=== PATIENT | female | born 2005 | race Caucasian/White ===

== ENCOUNTER 2024-02-16 21:20 | Observation (INO) ==
[2024-02-16 22:22] LABS: ABS Lymphocytes 0.7 10^3/uL (1.0-4.8); ABS Monocytes 0.5 10^3/uL (0.0-0.9); ABS Neutrophils 12.5 10^3/uL (1.5-7.6); ABS Nucleated RBC 0.01 10^3/ul; Eosinophil % 0.1 %; Hematocrit 37.9 % (35-45); Hemoglobin 12.5 g/dL (11.5-14.3); Mean Corpuscular Hemoglobin 29.8 pg (27-33); Mean Corpuscular Hgb Conc 32.9 g/dL (31-36); Mean Corpuscular Volume 90.4 fL (80-97); Mean Platelet Volume 9.1 fL (7.5-11.2); Nucleated Red Blood Cells % 0.1 %/100WBC (0.0-0.8); Platelet Count 328 10^3/uL (150-450); Red Cell Distribution Width 13.2 % (12-17); White Blood Count 13.7 10^3/uL (3.8-11.8)
[2024-02-16 22:55] LABS: ALT 10 U/L (7-52); AST 17 U/L (13-39); Albumin 4.6 g/dL (3.2-5.2); Albumin/Globulin Ratio 1.6 (1-3); Alkaline Phosphatase 73 U/L (35-149); Anion Gap 12 mmol/L (2-16); Blood Urea Nitrogen 9 mg/dL (6-24); C Reactive Protein 1.51 mg/L (<8.01); CO2 Carbon Dioxide 24 mmol/L (22-32); Calcium 9.3 mg/dL (8.6-10.3); Chloride 101 mmol/L (101-111); Creatinine, Serum 0.69 mg/dL (0.51-0.95); Globulin 2.8 g/dL (2-4); Glucose 110 mg/dL (70-100); Potassium 4.1 mmol/L (3.5-5.0); Sodium 137 mmol/L (135-145); Total Bilirubin 0.4 mg/dL (0.2-1.0); Total Protein 7.4 g/dL (6.4-8.9); eGFR CKD-EPI 127.3 (>60)
[2024-02-16 23:02] LABS: HCG Pregnancy < 0.60 mIU/mL
[2024-02-17] MEDS: Ondansetron 4 mg VIAL 2 MG/ML 2 ml VIAL IV ONE (01:18)
[2024-02-17] MEDS: Lactated Ringers 1000 ml BAG 1,000 ML IV ONE ×2 (01:19→03:57)
[2024-02-17] MEDS: Morphine 4 MG/ML VIAL (1 ml) IV ONE (02:03)
[2024-02-17] MEDS: Metoclopramide 5 MG/ML VIAL (10 mg) IV ONE (03:57)
[2024-02-17] MEDS: HYDROmorphone 0.5 MG/0.5 ML SYRINGE IV ONE (03:57)
[2024-02-17] MEDS: cefTRIAXone 1 gm/50 mL D5W 1 GM/50 ML BAG IV SCH (05:55)
[2024-02-17] MEDS: Lactated Ringers 1000 ml BAG 1,000 ML IV SCH (06:23)
[2024-02-17] MEDS ORDERED: ACETAMINOPHEN IV PRN ×2 (06:40→07:31)
[2024-02-17 09:05] LABS: Urine Appearance Clear; Urine Bilirubin Negative (Negative); Urine Blood 2+ (Negative); Urine Color Light-Yellow; Urine Glucose Negative (Negative); Urine Ketones 4+ (Negative); Urine Nitrite Negative (Negative); Urine Protein 1+ (>=30 mg/dL) (Negative); Urine Specific Gravity 1.023 (1.002-1.030); Urine Urobilinogen Negative (Negative); Urine pH 6.5 (5.0-8.0)
[2024-02-17 09:08] LABS: Urine Bacteria Absent /HPF (Absent); Urine Red Blood Cell 3+(>10/hpf) /HPF (0-Trace); Urine Squamous Epithelial Cell Present /HPF (Absent); Urine White Blood Cell Trace(0-5/hpf) /HPF (0-Trace)
[2024-02-17] MEDS: HYDROmorphone 0.5 MG/0.5 ML SYRINGE IV SLOW PU PRN (10:58)
[2024-02-17] MEDS ORDERED: Morphine 2 MG/ML SYRINGE IV PRN (11:32)
[2024-02-17] MEDS: Ondansetron 4 mg VIAL 2 MG/ML 2 ml VIAL IV PRN (20:41)
[2024-02-17] MEDS ORDERED: Acetaminophen IV 1 GM/100ML 1,000 MG/100 ML BAG IV ONE (20:53)
[2024-02-17] MEDS ORDERED: Ondansetron 4 mg VIAL 2 MG/ML 2 ml VIAL IV PRN (20:53)
[2024-02-17] MEDS ORDERED: fentaNYL 100 mcg/2 ml 50 MCG/ML VIAL IV PRN (20:53)
[2024-02-17] MEDS ORDERED: Scopolamine 1 mg/72hr PATCH TRANSDERM ONE (20:53)
[2024-02-17] MEDS ORDERED: Naloxone 0.4 mg VIAL 0.4 mg/ml 1 ml VIAL IV PRN (20:53)
[2024-02-17] MEDS ORDERED: NS 0.45% 1000 ml BAG 1,000 ML IV SCH (21:00)
[2024-02-17] MEDS ORDERED: Lactated Ringers 1000 ml BAG 1,000 ML IV SCH (21:00)
[2024-02-18] MEDS: cefTRIAXone 1 gm/50 mL D5W 1 GM/50 ML BAG IV SCH (05:37)
[2024-02-18 05:46] LABS: ABS Lymphocytes 1.2 10^3/uL (1.0-4.8); ABS Neutrophils 6.2 10^3/uL (1.5-7.6); ABS Nucleated RBC 0.01 10^3/ul; Eosinophil % 0.3 %; Hematocrit 31.8 % (35-45); Hemoglobin 10.8 g/dL (11.5-14.3); Lymphocyte % 13.9 %; Mean Corpuscular Hemoglobin 30.8 pg (27-33); Mean Corpuscular Volume 90.4 fL (80-97); Mean Platelet Volume 9.1 fL (7.5-11.2); Nucleated Red Blood Cells % 0.1 %/100WBC (0.0-0.8); Platelet Count 247 10^3/uL (150-450); Red Blood Count 3.52 10^6/uL (3.63-4.92); Red Cell Distribution Width 13.1 % (12-17); White Blood Count 8.4 10^3/uL (3.8-11.8)
[2024-02-18 06:09] LABS: Calcium 7.9 mg/dL (8.6-10.3); Creatinine, Serum 0.83 mg/dL (0.51-0.95); Magnesium 1.6 mg/dL (1.9-2.7); Potassium 3.7 mmol/L (3.5-5.0); eGFR CKD-EPI 103.4 (>60)
[2024-02-18] MEDS: Methylphenidate ER 18 mg TAB PO SCH (09:11)
[2024-02-18] MEDS: Magnesium Sulf 4 GM/100 ML IV 4,000 MG/100 ML BAG IVPB ONE (10:11)
[2024-02-18] MEDS: Buffered Lidocaine 1% SYRIN 1 ml INTRADERM ONE (10:55)
[2024-02-18] MEDS ORDERED: Iohexol 180 (CONTRAST) 10 ML SDV IV ONE (11:24)
[2024-02-18] MEDS ORDERED: fentaNYL 100 mcg/2 ml 50 MCG/ML VIAL ONE (11:41)
[2024-02-18] MEDS ORDERED: Midazolam 2 mg/2 ml VIAL 1 mg/ml 2 ml VIAL (2 mg) ONE (11:41)
[2024-02-18] MEDS ORDERED: Lidocaine 2% PF 5 ML VIAL ONE (11:43)
[2024-02-18] MEDS ORDERED: Propofol 10 MG/ML 20 ML BTL ONE (12:01)
[2024-02-18] MEDS ORDERED: Phenylephrine 40 mcg/mL 10mL (400mcg) SYRINGE ONE (12:06)
[2024-02-18] MEDS ORDERED: Ondansetron 4 mg VIAL 2 MG/ML 2 ml VIAL ONE (12:10)
[2024-02-18] MEDS ORDERED: Dexamethasone IV 4 MG/ML VIAL 1 ml VIAL ONE ×2 (12:10)
[2024-02-18 14:43] VITALS: BP 114/65
== END 2024-02-18 14:40 | disposition home or self-care (01) ==
LOC: ED 21:20 → EDHOLD 21:20 → SUATTDRO 02-17 05:01 → SSU 02-17 09:35
PROVIDERS: ADMIT Internal Medicine; ATTEND Hospitalist